=== PATIENT | male | born 1975 | race Caucasian/White ===

== ENCOUNTER → 2017-06-15 | Outpatient (CLI) | payer OTHER ==
--- NOTE | 2017-06-18 06:08 | SLEEPCENT ---
DATE OF PROCEDURE: 06/15/2017 ORDERED BY: Jadyn Wright Nocturnal polysomnography was performed for retitration of pressure therapy in this patient with a prior history of obstructive sleep apnea syndrome and comorbidities of hypertension and coronary artery disease. For testing, a ResMed AirFit F20 full face mask of large size was used and 9 cm of water pressure were applied to the circuit and the lights were extinguished. 6 hours and 52 minutes of data were reviewed. There were 378 minutes of sleep identified. Sleep latency was normal at 10 minutes. Rapid eye movement (REM) latency was normal at 82 minutes. Sleep architecture was fairly good with 3-4 REM periods appreciated. Overall sleep efficiency was 93%. Electrocardiogram (EKG) showed a sinus rhythm with an average heart rate of 62 beats per minute. Heart rate ranged 50 to 80 beats per minute. Electroencephalogram (EEG) showed some alpha intrusion into non REM stages, otherwise normal waveforms for wake and sleep. No focal events were identified. Respiratory events were found best palliated with CPAP at a pressure of +9, with which pressure the patient slept through REM without respiratory event or oxygen desaturation. There were occasional spontaneous arousals and some limb activity. Limb movement arousal index was only 4.9 events per hour. Oxygen saturations remained 90% plus. IMPRESSION: Obstructive sleep apnea syndrome (G47.33). RECOMMENDATION: Nightly use of pressure therapy at 9 cm of water.
== END ==
LOC: M SLEEP 20:00
PROVIDERS: ATTEND Nurse Practitioner
DX: G47.33 Obstructive sleep apnea (adult) (pediatric) (principal)

== ENCOUNTER → 2025-06-17 | Outpatient (CLI) | payer OTHER ==
[2025-06-17 13:27] LABS: APPEARANCE, URINE CLEAR (CLEAR); BACTERIA, URINE AUTO NEGATIVE (NEGATIVE); BASO # 0.1 10^3/uL (0.0-0.2); BASO % 0.5 % (0.0-1.0); BILIRUBIN, URINE AUTO NEGATIVE (NEGATIVE); BLOOD, URINE BLOOD NEGATIVE (NEGATIVE); EOS # 0.3 10^3/uL (0.0-0.5); EOS % 2.8 % (0.0-3.0); GLUCOSE, URINE (UA) AUTO NEGATIVE (NEGATIVE); KETONE, URINE AUTO NEGATIVE (NEGATIVE); LEUKOCYTE ESTERASE, URINE AUTO NEGATIVE (NEGATIVE); LYMPH # 1.8 10^3/uL (1.5-5.0); LYMPH % 19.2 % (24.0-44.0); MONO # 0.6 10^3/uL (0.0-0.8); MONO % 6.7 % (2.0-8.0); MUCUS, URINE SMALL (NEGATIVE); NEUTROPHILS # 6.5 10^3/uL (1.5-8.5); NEUTROPHILS % 70.6 % (36.0-66.0); NITRITE, URINE AUTO NEGATIVE (NEGATIVE); PLATELET COUNT, AUTOMATED 360 10^3/uL (150-450); PROTEIN, URINE AUTO NEGATIVE (NEGATIVE); RBC, URINE AUTO 0 /HPF (0-3); SPECIFIC GRAVITY URINE AUTO 1.004 (1.002-1.035); SQUAMOUS EPITHELIAL CELL UR AU 0 /HPF (0-6); UROBILINOGEN, URINE AUTO 0.2 mg/dL (0.0-2.0); WBC, URINE AUTO 1 /HPF (0-3)
[2025-06-17 13:56] LABS: ALT/SGPT 27 U/L (7.0-40); AST/SGOT 17 U/L (<34); CALCIUM LEVEL 9.1 MG/DL (8.5-10.1); CARBON DIOXIDE LEVEL 26 MMOL/L (20-31); CHLORIDE LEVEL 105 MMOL/L (98-107); CHOLESTEROL LEVEL 171 MG/DL (<200); CHOLESTEROL RISK RATIO 4.04 (<5); CREATININE FOR GFR 0.75 MG/DL (0.70-1.30); GLOMERULAR FILTRATION RATE > 90.0 (>60); LDL CHOLESTEROL 100.1 MG/DL (<100); NON-HDL-C 128.7 MG/DL; POTASSIUM SERUM 4.4 MMOL/L (3.5-5.1); SODIUM LEVEL 136 MMOL/L (136-145); TRIGLYCERIDES LEVEL 143 MG/DL (<150)
== END ==
LOC: M WUC 09:57
PROVIDERS: ATTEND Family Medicine
DX: I10 Essential (primary) hypertension (principal); E78.5 Hyperlipidemia, unspecified; Z79.899 Other long term (current) drug therapy